=== PATIENT | female | born 1990 | race American Indian/Alaskan Native ===

== ENCOUNTER 2017-03-06 13:13 | Emergency (ER) | payer MEDICAID ==
[~2017-03-06] VITALS: Ht 162.6 cm; Wt 91.0 kg
[2017-03-06 19:15] VITALS: BP 117/72
== END 2017-03-06 19:48 | disposition home or self-care (01) ==
LOC: ER 16:17
DX: K64.4 Residual hemorrhoidal skin tags (principal); Z88.6 Allergy status to analgesic agent; Z90.49 Acquired absence of other specified parts of digestive tract
CPT/HCPCS: 81025; 99283

== ENCOUNTER 2019-01-04 10:06 | Emergency (ER) | payer MEDICAID, OTHER ==
[~2019-01-04] VITALS: Ht 162.6 cm; Wt 86.0 kg
[2019-01-04] MEDS ORDERED: IBUPROFEN 800MG TABLET PO ONE (11:30)
[2019-01-04 13:00] VITALS: BP 119/84
== END 2019-01-04 13:01 | disposition home or self-care (01) ==
LOC: ER 10:06
DX: N63.0 Unspecified lump in unspecified breast (principal); N60.81 Other benign mammary dysplasias of right breast; N61.1 Abscess of the breast and nipple; L70.0 Acne vulgaris; R03.0 Elevated blood-pressure reading, without diagnosis of hypertension
CPT/HCPCS: 76641; 81025; 99284

== ENCOUNTER 2023-11-06 23:52 | Emergency (ER) | payer OTHER ==
[~2023-11-06] VITALS: Ht 162.6 cm; Wt 95.0 kg
[2023-11-06 23:58] VITALS: BP 122/87; PULSE 79; RESP 16; TEMP 98.5; O2SAT 100
[2023-11-07] MEDS ORDERED: KETOROLAC 15MG/ML VIAL IV ONE (00:15)
[2023-11-07] MEDS ORDERED: ONDANSETRON HCL 4MG/2ML INJ IV ONE (00:15)
[2023-11-07] MEDS ORDERED: SODIUM CHLORIDE 0.9% 1,000 ML IV ONE (00:15)
[2023-11-07 00:47] LABS: INR 0.9
[2023-11-07 00:49] LABS: HEMATOCRIT. 38.2 % (36.0-48.0); HEMOGLOBIN. 12.4 g/dL (12.0-16.0); MEAN CORPUSCULAR HEMOGLOBIN 30.7 pg (28.0-32.0); MEAN CORPUSCULAR HGB CONC 32.5 g/dL (31.0-37.0); MEAN CORPUSCULAR VOLUME 94.6 fL (81.0-99.0); MEAN PLATELET VOLUME 9.8 fl (7.4-10.4); PLATELET 220 x1000/uL (130-400); RED BLOOD CELL COUNT 4.03 mill/uL (4.2-5.4); RED CELL DISTRIBUTION WIDTH 14.2 % (11.6-14.6); WHITE BLOOD COUNT 4.5 x1000/uL (4.5-11.0)
[2023-11-07 00:58] LABS: ALANINE AMINOTRANSFERASE 35 IU/L (10-49); ASPARTATE AMINOTRANSFERASE 36 IU/L (<34); BILIRUBIN TOTAL 0.3 mg/dL (0.1-1.0); CARBON DIOXIDE 26 mEq/L (21-32); CHLORIDE 104 mEq/L (98-107); CREATININE 0.7 mg/dL (0.6-1.0); GLUCOSE 98 mg/dL (70-105); POTASSIUM 3.7 mEq/L (3.5-5.1); PROTEIN TOTAL 6.6 g/dL (6.0-8.3); SODIUM 140 mEq/L (136-145); UREA NITROGEN BLOOD 12 mg/dL (9-23)
[2023-11-07 01:03] LABS: DIFFERENTIAL COMMENT 1
[2023-11-07 01:04] LABS: HCG SCREEN NEGATIVE
[2023-11-07 01:09] LABS: ETHANOL BLOOD < 10 mg/dL (<10)
[2023-11-07 01:58] LABS: PLATELET ESTIMATE NORMAL
== END 2023-11-07 01:05 | disposition left against medical advice (07) ==
LOC: ER 23:52
DX: R10.30 Lower abdominal pain, unspecified (principal); Z90.49 Acquired absence of other specified parts of digestive tract
CPT/HCPCS: 36415; 99283; 80053; 80320; 84703; 83690; 85025; 85610; J7030; G0480